=== PATIENT | female | born 1935 | race Caucasian/White ===

== ENCOUNTER 2019-07-16 22:13 | Inpatient (IN) | payer OTHER ==
[~2019-07-16] VITALS: Ht 172.7 cm; Wt 79.8 kg
[2019-07-16 22:13] VITALS: BP 125/75
--- NOTE | 2019-07-16 22:13 | NUR ---
PT EUGENIO ALS. TAKEN TO BED 6
--- NOTE | 2019-07-16 22:43 | NUR ---
83 Y/O FEMALE PRESENTS TO ED, C/O EPIGASTRIC CHEST PAIN, RADIATES TO LEFT SHOULDER 06/03. PT TOOK ASPIRIN 15 MINS PRIOR TO AMBULANCE ARRIVAL. PT RECEIVED 2 ROUNDS OF NITRO ENROUTE; PAIN IS 7/10. PT DENIES ANY DIZZINESS/HEADACHE. PT VSS. PT SEEN BY KAROLINE. WILL CONTINUE TO MONITOR.
--- NOTE | 2019-07-16 22:59 | NUR ---
X-Ray at bedside.
[2019-07-16 23:00] LABS: BASOPHILS # (AUTO) 0.1 K/uL (0.00-0.22); BASOPHILS % (AUTO) 1.3 % (0.0-2.0); EOSINOPHILS # (AUTO) 0.3 K/uL (0-0.4); EOSINOPHILS % (AUTO) 3.2 % (0.0-4.0); HEMATOCRIT 39.2 % (36-48); HEMOGLOBIN 12.9 g/dL (12.0-16.0); LYMPHOCYTES # (AUTO) 3.4 K/uL (2.5-16.5); LYMPHOCYTES % (AUTO) 38.8 % (20.5-51.1); MEAN CORPUSCULAR HEMOGLOBIN 30 pg (27-31); MEAN CORPUSCULAR HGB CONC 33 g/dL (33-37); MEAN CORPUSCULAR VOLUME 92.1 fL (80-94); MONOCYTES # (AUTO) 0.8 K/uL (0.8-1.0); MONOCYTES % (AUTO) 8.9 % (1.7-9.3); NEUTROPHILS # (AUTO) 4.2 K/uL (1.8-7.7); NEUTROPHILS % (AUTO) 47.8 % (42.2-75.2); PLATELET COUNT (AUTO) 245 K/uL (140-450); RED BLOOD CELL COUNT(AUTO) 4.26 MIL/uL (4.20-5.40); RED CELL DISTRIBUTION WIDTH 14.2 % (11.6-13.7); WHITE BLOOD COUNT (AUTO) 8.8 K/uL (4.8-10.8)
[2019-07-16 23:16] LABS: ALBUMIN 3.3 g/dL (3.4-5.0); ANION GAP 14.7 (8-16); ASPARTATE AMINOTRANSFERASE 15 U/L (15-37); CARBON DIOXIDE 24.1 mmol/L (21-32); CHLORIDE 106 mmol/L (98-107); GLUCOSE 97 mg/dL (74-106); LIPASE 224 U/L (73-393); POTASSIUM 3.8 mmol/L (3.5-5.1); SODIUM SERUM 141 mmol/L (136-145); TOTAL BILIRUBIN 0.4 mg/dL (0.0-1.0); UREA NITROGEN, BLOOD 25 mg/dL (7-18)
[2019-07-16 23:23] LABS: CREATINE KINASE MB 0.9 ng/mL (0-3.6)
--- NOTE | 2019-07-17 00:42 | NUR ---
PT LAYING IN BED, RR EVEN AND UNLABORED. REPORTS IMPROVEMENT IN PAIN MGMT, 4/10 AT THIS TIME. PT ABLE TO AMBULATE TO RESTROOM TO URINATE. VSS. ALL NEEDS MET.
[2019-07-17] MEDS ORDERED: ONDANSETRON 4 MG/2 ML VIAL IM/IVP PRN (01:10)
--- NOTE | 2019-07-17 01:18 | NUR ---
Dr. Mane examining patient.
[2019-07-17 01:42] VITALS: BP 163/75
--- NOTE | 2019-07-17 01:42 | NUR ---
REPORT RECEIVED FROM ED NURSE AT BEDSIDE. PT IN STABLE CONDITION. AAOX4. INTRODUCED SELF TO PT. BOARD UPDATED. PT HAS COMPLAINTS OF CHEST PAIN RADIATING TO NECK AREA. WILL MEDICATE. NO SOB. AFEBRILE. PT IS AMBULATORY. IV SITE R WRIST 20G RUNNING NS@60ML/HR PATENT AND INTACT. SKIN WARM, DRY, AND INTACT WITH NO OPEN WOUNDS. BED LOCKED IN LOW POSITION. CALL MIRANDA WITHIN REACH. SAFETY PRECAUTION IN PLACE. ALL NEEDS MET AT THIS TIME.
--- NOTE | 2019-07-17 01:45 | NUR ---
PT ADMITTED TO [facility] RM [id number]. TRANSFERRED PT VIA [place], STABLE CONDITION. REPORT GIVEN TO ERIC SCRUGGS. PT CARE TRANSFERRED TO RECEIVING RN.
[2019-07-17] MEDS ORDERED: amLODIPine 5 MG TAB PO SCH (02:45)
[2019-07-17 02:50] LABS: PROTHROMBIN TIME 9.7 secs (10.8-13.4)
[2019-07-17] MEDS: NACL 0.9% 1,000 ML IV SCH ×2 (02:50→18:14)
[2019-07-17 02:51] LABS: CHOL/HDL RATIO 2.3 (1-4.5); FREE T4 (FREE THYROXINE) 0.99 ng/dL (0.76-1.46); MAGNESIUM 1.6 mg/dL (1.8-2.4); PHOSPHORUS 2.8 mg/dL (2.5-4.9); THYROID STIMULATING HORMONE 5.71 uIU/mL (0.34-3.74)
[2019-07-17] MEDS: LORazepam 2 MG/ML VIAL IM/IVP PRN ×2 (02:56→20:07)
[2019-07-17] MEDS: KETOROLAC 30 MG/ML VIAL IVP PRN ×2 (02:56→20:06)
--- NOTE | 2019-07-17 02:56 | NUR ---
TORADOL GIVEN FOR 5/10 CHEST PAIN RADIATING TO THE NECK. ATIVAN GIVEN FOR ANXIETY. NORVASC GIVEN PO FOR INCREASED BP. PT TOLERATED WELL.
[2019-07-17 04:00] VITALS: BP 136/67
[2019-07-17] MEDS ORDERED: MAG SULF 2000 MG/WATER PREMIX 50 ML IV SCH (04:30)
--- NOTE | 2019-07-17 05:20 | NUR ---
PT SLEEPING COMFORTABLY BUT AROUSABLE. NO S/S OF DISTRESS NOTED. WILL CONTINUE TO MONITOR.
[2019-07-17] MEDS: BLOOD GLUCOSE MONITORING 1 DEV DEV FS SCH (06:06)
--- NOTE | 2019-07-17 06:06 | NUR ---
BS 84. NO INSULIN COVERAGE NEEDED.
[2019-07-17 06:52] LABS: BASOPHILS # (AUTO) 0.1 K/uL (0.00-0.22); BASOPHILS % (AUTO) 1.5 % (0.0-2.0); EOSINOPHILS # (AUTO) 0.3 K/uL (0-0.4); EOSINOPHILS % (AUTO) 4.1 % (0.0-4.0); HEMATOCRIT 40.9 % (36-48); HEMOGLOBIN 13.3 g/dL (12.0-16.0); LYMPHOCYTES # (AUTO) 2.6 K/uL (2.5-16.5); LYMPHOCYTES % (AUTO) 33.8 % (20.5-51.1); MEAN CORPUSCULAR HEMOGLOBIN 30 pg (27-31); MEAN CORPUSCULAR HGB CONC 33 g/dL (33-37); MEAN CORPUSCULAR VOLUME 93.5 fL (80-94); MONOCYTES # (AUTO) 0.9 K/uL (0.8-1.0); MONOCYTES % (AUTO) 11.4 % (1.7-9.3); NEUTROPHILS # (AUTO) 3.8 K/uL (1.8-7.7); NEUTROPHILS % (AUTO) 49.2 % (42.2-75.2); PLATELET COUNT (AUTO) 229 K/uL (140-450); RED BLOOD CELL COUNT(AUTO) 4.37 MIL/uL (4.20-5.40); RED CELL DISTRIBUTION WIDTH 14.3 % (11.6-13.7); WHITE BLOOD COUNT (AUTO) 7.7 K/uL (4.8-10.8)
--- NOTE | 2019-07-17 07:15 | NUR ---
RECEIVED REPORT FROM DAY SHIFT NURSE ERIC FOR CONTINUITY OF CARE. PT IN STABLE CONDITION. RESPIRATIONS EVEN AND UNLABORED, ROOM AIR. IV INTACT AND PATENT. ORIENTED PT TO ROOM. SAFETY MEASURES IN PLACE. BED IN LOW POSITION. CALL LIGHT AT BEDSIDE. WILL CONTINUE TO MONITOR.
[2019-07-17 07:17] LABS: ANION GAP 10.9 (8-16); CHLORIDE 109 mmol/L (98-107); GLUCOSE 91 mg/dL (74-106); POTASSIUM 3.9 mmol/L (3.5-5.1); SODIUM SERUM 144 mmol/L (136-145); UREA NITROGEN, BLOOD 21 mg/dL (7-18)
[2019-07-17 08:00] VITALS: BP 147/67
--- NOTE | 2019-07-17 08:39 | NUR ---
PATIENT HAS BEEN SCREENED AND CATEGORIZED MODERATE NUTRITION RISK. PATIENT WILL BE SEEN WITHIN 3-5 DAYS OF ADMISSION. 07/19/19 07/21/[address]
--- NOTE | 2019-07-17 09:45 | NUR ---
GAVE ORDERED DUE MEDICATIONS AT THIS TIME. PT TOLERATED WELL. BED IN LOW POSITION. CALL LIGHT AT BEDSIDE. WILL CONTINUE TO MONITOR.
[2019-07-17] MEDS: ATORVASTATIN 20 MG TAB PO SCH (09:49)
[2019-07-17] MEDS: CLOPIDOGREL 75 MG TAB PO SCH (09:49)
[2019-07-17] MEDS: ASPIRIN 81 MG TAB.CHEW PO SCH (09:50)
[2019-07-17] MEDS: amLODIPine 5 MG TAB PO SCH (09:50)
[2019-07-17] MEDS ORDERED: DOCUSATE SODIUM 100 MG GELCAP PO PRN (11:00)
--- NOTE | 2019-07-17 11:30 | NUR ---
COLLECTED URINE SAMPLE TO TAKE TO LAB.
[2019-07-17] MEDS: APAP/BUTAL/CAFF 325/50/40 MG 1 TAB PO PRN (11:38)
[2019-07-17 12:00] VITALS: BP 138/64
--- NOTE | 2019-07-17 13:04 | NUR ---
PT TALKING WITH [facility] [phone] STAFF RICARDO AT BEDSIDE. WHERE PT RESIDES. PT IN STABLE CONDITION. BED IN LOW POSITION. CALL LIGHT AT BEDSIDE. WILL CONTINUE TO MONITOR.
[2019-07-17 14:25] LABS: APPEARANCE,URINE CLEAR (CLEAR); BILIRUBIN,URINE NEGATIVE (NEGATIVE); BLOOD, URINE NEGATIVE (NEGATIVE); COLOR,URINE YELLOW (YELLOW); LEUKOCYTE ESTERASE ,URINE NEGATIVE (NEGATIVE); NITRITE, URINE NEGATIVE (NEGATIVE); PH,URINE 6.5 (5.0-9.0); UGLUCOSE NEGATIVE (NEGATIVE)
--- NOTE | 2019-07-17 15:10 | NUR ---
PT REMOVED HEART MONITOR INFORMING THE NURSE SHE IS GOING HOME.
--- NOTE | 2019-07-17 15:57 | NUR ---
PLACED HEART MONITOR BACK ON PT. EXPLAINED TO PT THE IMPORTANCE OF CARDIAC MONITORING, PT VERBALIZED UNDERSTANDING.
--- NOTE | 2019-07-17 17:57 | NUR ---
PT WATCHING TV IN STABLE CONDITION. BED IN LOW POSITION. CALL LIGHT AT BEDSIDE. WILL CONTINUE TO MONITOR.
[2019-07-17 18:34] VITALS: BP 148/65
--- NOTE | 2019-07-17 19:15 | NUR ---
GAVE REPORT TO CUSTOMER SERVICE SECURITY OFFICER NURSE ERIC FOR CONTINUITY OF CARE. PT IN STABLE CONDITION.
--- NOTE | 2019-07-17 19:16 | NUR ---
REPORT RECEIVED FROM AM NURSE AT BEDSIDE. PT IN STABLE CONDITION. AAOX4. INTRODUCED SELF TO PT. BOARD UPDATED. NO COMPLAINTS OF PAIN. NO SOB. AFEBRILE. PT IS AMBULATORY. IV SITE R WRIST 20G RUNNING NS@60ML/HR PATENT AND INTACT. SKIN WARM, DRY, AND INTACT WITH NO OPEN WOUNDS. BED LOCKED IN LOW POSITION. CALL MIRANDA WITHIN REACH. SAFETY PRECAUTION IN PLACE. ALL NEEDS MET AT THIS TIME.
[2019-07-17 20:00] VITALS: BP 163/59
[2019-07-17] MEDS: DONEPEZIL 10 MG TAB PO SCH (20:06)
--- NOTE | 2019-07-17 20:06 | NUR ---
ARICEPT GIVEN PO. ATIVAN GIVEN FOR ANXIETY. TORADOL GIVEN FOR 5/10 CHEST PAIN. PT TOLERATED WELL.
--- NOTE | 2019-07-17 21:45 | NUR ---
PT IN BED SLEEPING COMFORTABLY BUT AROUSABLE. NO S/S OF DISTRESS NOTED. WILL CONTINUE TO MONITOR.
--- NOTE | 2019-07-17 23:35 | NUR ---
PT SLEEPING COMFORTABLY BUT AROUSABLE. NO S/S OF DISTRESS NOTED. VS STABLE. WILL CONTINUE TO MONITOR.
[2019-07-18] VITALS: BP 147/79
--- NOTE | 2019-07-18 02:15 | NUR ---
PT SLEEPING COMFORTABLY BUT AROUSABLE. NO S/S OF DISTRESS NOTED. NO COMPLAINTS OF PAIN. NO SOB. AFEBRILE. WILL CONTINUE TO MONITOR.
[2019-07-18 04:00] VITALS: BP 138/81
--- NOTE | 2019-07-18 04:25 | NUR ---
PT SLEEPING COMFORTABLY BUT AROUSABLE. NO S/S OF DISTRESS NOTED. NO COMPLAINTS OF PAIN. NO SOB. AFEBRILE. WILL CONTINUE TO MONITOR.
[2019-07-18] MEDS: BLOOD GLUCOSE MONITORING 1 DEV DEV FS SCH (06:06)
--- NOTE | 2019-07-18 06:06 | NUR ---
BS 75. NO INSULIN COVERAGE NEEDED.
[2019-07-18 06:49] LABS: BASOPHILS # (AUTO) 0.1 K/uL (0.00-0.22); BASOPHILS % (AUTO) 1.8 % (0.0-2.0); EOSINOPHILS # (AUTO) 0.3 K/uL (0-0.4); EOSINOPHILS % (AUTO) 4.6 % (0.0-4.0); HEMATOCRIT 39.9 % (36-48); LYMPHOCYTES # (AUTO) 2.4 K/uL (2.5-16.5); MEAN CORPUSCULAR HEMOGLOBIN 31 pg (27-31); MEAN CORPUSCULAR HGB CONC 33 g/dL (33-37); MONOCYTES # (AUTO) 0.7 K/uL (0.8-1.0); MONOCYTES % (AUTO) 10.6 % (1.7-9.3); NEUTROPHILS # (AUTO) 3.1 K/uL (1.8-7.7); PLATELET COUNT (AUTO) 214 K/uL (140-450); RED BLOOD CELL COUNT(AUTO) 4.24 MIL/uL (4.20-5.40); RED CELL DISTRIBUTION WIDTH 14.2 % (11.6-13.7); WHITE BLOOD COUNT (AUTO) 6.6 K/uL (4.8-10.8)
[2019-07-18 07:04] LABS: MAGNESIUM 1.8 mg/dL (1.8-2.4); PHOSPHORUS 3.2 mg/dL (2.5-4.9)
[2019-07-18 07:12] LABS: ANION GAP 12.3 (8-16); CARBON DIOXIDE 25.9 mmol/L (21-32); CHLORIDE 109 mmol/L (98-107); CREATININE 0.9 mg/dL (0.6-1.3); GLUCOSE 88 mg/dL (74-106); POTASSIUM 4.2 mmol/L (3.5-5.1); SODIUM SERUM 143 mmol/L (136-145); UREA NITROGEN, BLOOD 19 mg/dL (7-18)
--- NOTE | 2019-07-18 07:50 | NUR ---
REPORT RECEIVED FROM PLASTIC TOP ASSEMBLER NURSE AT BEDSIDE. PT IN STABLE CONDITION. AAOX4. INTRODUCED SELF TO PT. BOARD UPDATED. NO COMPLAINTS OF PAIN. NO SOB. AFEBRILE. PT IS AMBULATORY. IV SITE R WRIST 20G RUNNING NS@60ML/HR PATENT AND INTACT. SKIN WARM, DRY, AND INTACT WITH NO OPEN WOUNDS. EXPLAINED POC TO PT AND PT VERBALIZED UNDERSTANDING. BED LOCKED IN LOW POSITION. CALL MIRANDA WITHIN REACH. SAFETY PRECAUTION IN PLACE. ALL NEEDS MET AT THIS TIME. WILL ROUND FREQUENTLY ON PT.
[2019-07-18 08:00] VITALS: BP 144/72
[2019-07-18] MEDS: ATORVASTATIN 20 MG TAB PO SCH (08:26)
[2019-07-18] MEDS: PANTOPRAZOLE 40 MG TABEC PO SCH (08:26)
[2019-07-18] MEDS: CLOPIDOGREL 75 MG TAB PO SCH (08:27)
[2019-07-18] MEDS: amLODIPine 5 MG TAB PO SCH (08:27)
[2019-07-18] MEDS: ASPIRIN 81 MG TAB.CHEW PO SCH (08:27)
--- NOTE | 2019-07-18 08:37 | NUR ---
ADMINISTERED MORNING MEDS TO PT. PT TOLERATED WELL. WILL CONTINUE TO ROUND FREQUENTLY ON PT. BED IN LOW POSITION, CALL LIGHT WITHIN REACH.
[2019-07-18] MEDS: NACL 0.9% 1,000 ML IV SCH (10:49)
[2019-07-18] MEDS ORDERED: KETOROLAC 15 MG/ML VIAL IVP PRN (11:30)
--- NOTE | 2019-07-18 11:34 | NUR ---
PT SLEEPING IN BED. ALL NEEDS MET. WILL CONTINUE TO ROUND FREQUENTLY ON PT. BED IN LOW POSITION, CALL LIGHT WITHIN REACH.
--- NOTE | 2019-07-18 13:23 | NUR ---
PT SLEEPING. ALL NEEDS MET. NO SIGNS OF PAIN OR DISTRESS NOTED. WILL CONTINUE TO ROUND FREQUENTLY ON PT. BED IN LOW POSITION, CALL LIGHT WITHIN REACH.
--- NOTE | 2019-07-18 15:03 | NUR ---
PT RESTING. ALL NEEDS MET. WILL CONTINUE TO ROUND FREQUENTLY ON PT.
[2019-07-18 16:00] VITALS: BP 144/68
--- NOTE | 2019-07-18 17:28 | NUR ---
PT RESTING IN BED. ALL NEEDS MET. WILL CONTINUE TO ROUND FREQUENTLY ON PT.
--- NOTE | 2019-07-18 19:39 | NUR ---
RECIEVED PT AAOX4 , NID ,IV SITE INTACT AND PATENT , WITH C/O OF VERY LIGHT CHEST PAIN , ECG RESULT -SR UPON ADMISSION . PAIN SCALE 1/10 SHE SAID , O2 SAT. WNL , PLAN OF CARE DISCUSSED AND VERBALIZE UNDERSTANDING , CALL LIGHT WITHIN REACH . ON SAFETY /FALL PRECAUTION PROTOCOL - REMINDS THE USE OF CALL LIGHT . REMINDS TO CALL FOR ASSITANCE IF SHE NEEDED.WILL CONT. TO MONITOR .
--- NOTE | 2019-07-18 19:39 | NUR ---
ENDORSED PT TO LADLE MECHANIC FOR CONTINUITY OF CARE. PT IN STABLE CONDITION AT THIS TIME.
[2019-07-18] MEDS: DONEPEZIL 10 MG TAB PO SCH (20:28)
--- NOTE | 2019-07-18 21:45 | NUR ---
MADE ROUNDS TO VERIFY IF SHE STILL WANTS SLEEPING PILL - BUT PT. SLEEPING AT THIS TIME.
[2019-07-18] MEDS: LORazepam 2 MG/ML VIAL IM/IVP PRN (23:17)
[2019-07-19] VITALS: BP 143/79
--- NOTE | 2019-07-19 | NUR ---
MADE ROUNDS , NO COMPLAIN MADE AT THIS TIME.WILL CONT. TO MONITOR.
--- NOTE | 2019-07-19 02:00 | NUR ---
SLEEPING , CALL LIGHT WITHIN REACH.
[2019-07-19] MEDS: NACL 0.9% 1,000 ML IV SCH (03:09)
--- NOTE | 2019-07-19 04:00 | NUR ---
MADE ROUNDS , NO COMPLAIN MADE .
[2019-07-19] MEDS: BLOOD GLUCOSE MONITORING 1 DEV DEV FS SCH (05:51)
--- NOTE | 2019-07-19 07:25 | NUR ---
ENDORSED TO AM SHIFT FOR CONT. OF CARE WITH STABLE CONDITION,.
--- NOTE | 2019-07-19 07:30 | NUR ---
RECEIVED PT FROM GROUP FITNESS DEPARTMENT HEAD NURSE, PT IS AWAKE AND LYING ON THE BED WITH SIDE RAILS UP AND CALL LIGHT WITHIN REACH, PERIPHERAL LINE ON THE RIGHT WRIST G. 20 WITH NS INFUSING AT 60ML/HR, PT DENIES PAIN, AOX4, ON ROOM AIR, AND NO SIGN OF DISTRESS NOTED. WILL CONTINUE TO MONITOR PT
[2019-07-19 08:00] VITALS: BP 141/62
[2019-07-19 08:38] LABS: BASOPHILS # (AUTO) 0.1 K/uL (0.00-0.22); BASOPHILS % (AUTO) 1.5 % (0.0-2.0); EOSINOPHILS # (AUTO) 0.3 K/uL (0-0.4); EOSINOPHILS % (AUTO) 4.3 % (0.0-4.0); HEMOGLOBIN 13.7 g/dL (12.0-16.0); LYMPHOCYTES # (AUTO) 2.4 K/uL (2.5-16.5); LYMPHOCYTES % (AUTO) 34.7 % (20.5-51.1); MEAN CORPUSCULAR HEMOGLOBIN 31 pg (27-31); MEAN CORPUSCULAR HGB CONC 33 g/dL (33-37); MEAN CORPUSCULAR VOLUME 94.2 fL (80-94); MONOCYTES # (AUTO) 0.7 K/uL (0.8-1.0); MONOCYTES % (AUTO) 10.5 % (1.7-9.3); NEUTROPHILS # (AUTO) 3.5 K/uL (1.8-7.7); PLATELET COUNT (AUTO) 232 K/uL (140-450); RED BLOOD CELL COUNT(AUTO) 4.45 MIL/uL (4.20-5.40); RED CELL DISTRIBUTION WIDTH 14.4 % (11.6-13.7)
[2019-07-19] MEDS: ATORVASTATIN 20 MG TAB PO SCH (09:03)
--- NOTE | 2019-07-19 09:03 | NUR ---
PT IS AWAKE AND ORAL MEDICATIONS WERE GIVEN, PARAMETER CHECKED, TOLERATED AND NO SIGN OF DISTRESS NOTED. WILL MONITOR PT.
[2019-07-19] MEDS: CLOPIDOGREL 75 MG TAB PO SCH (09:04)
[2019-07-19] MEDS: ASPIRIN 81 MG TAB.CHEW PO SCH (09:04)
[2019-07-19] MEDS: amLODIPine 5 MG TAB PO SCH (09:04)
[2019-07-19] MEDS: PANTOPRAZOLE 40 MG TABEC PO SCH (09:04)
[2019-07-19 11:52] LABS: ANION GAP 15.4 (8-16); CARBON DIOXIDE 25.8 mmol/L (21-32); CHLORIDE 109 mmol/L (98-107); GLUCOSE 86 mg/dL (74-106); POTASSIUM 4.2 mmol/L (3.5-5.1); SODIUM SERUM 146 mmol/L (136-145); UREA NITROGEN, BLOOD 17 mg/dL (7-18)
[2019-07-19] MEDS ORDERED: ATOR20TA40 PO (11:54)
[2019-07-19] MEDS ORDERED: PANT40EC28 PO (11:54)
[2019-07-19] MEDS ORDERED: ASPI81CT95 PO (11:54)
[2019-07-19] MEDS ORDERED: AMLO5TAB6 PO (11:54)
[2019-07-19] MEDS ORDERED: CLOP75TA55 PO (11:54)
[2019-07-19] MEDS ORDERED: DONE10TA10 PO (11:54)
[2019-07-19 12:30] LABS: MAGNESIUM 1.9 mg/dL (1.8-2.4)
--- NOTE | 2019-07-19 13:17 | NUR ---
ULTRASOUND OF THE ABDOMEN LIMITED IS BEING DONE TO PT NOW
[2019-07-19] MEDS: APAP/BUTAL/CAFF 325/50/40 MG 1 TAB PO PRN (14:49)
--- NOTE | 2019-07-19 14:49 | NUR ---
PT C/O PAIN RATE OF 8/10 FOR HEADACHE AND MEDICATED WITH FIORECET. WILL RE-ASSESS PT.
[2019-07-19] MEDS ORDERED: MEMA5TAB PO (14:54)
[2019-07-19] MEDS ORDERED: LEVO0.0211 PO (14:54)
[2019-07-19] MEDS ORDERED: ESCI5TAB PO (14:54)
--- NOTE | 2019-07-19 16:55 | NUR ---
DISCHARGED PT TO [facility] WITH CASA, PERSONNEL FROM THE BOARD AND CARE, VIA WHEELCHAIR, DISCHARGE INSTRUCTIONS AND MEDICATION PRESCRIPTIONS WERE GIVEN TO PT AND CASA, AND BOTH VERBALIZED UNDERSTANDING,PT IS STABLE AT THIS TIME. DR. BRIGHT SPOKE TO CASA, FACILITY PERSONNEL AND WAS REMINDED TO HAVE PT SCHEDULE AN APPOINTMENT WITH PCP AND CASA VERBALIZED UNDERSTANDING.
[2019-07-19] MEDS ORDERED: DONEPEZIL 10 MG TAB PO SCH (21:00)
[2019-07-20] MEDS ORDERED: amLODIPine 5 MG TAB PO SCH (09:00)
[2019-07-20] MEDS ORDERED: PANTOPRAZOLE 40 MG TABEC PO SCH (09:00)
[2019-07-20] MEDS ORDERED: CLOPIDOGREL 75 MG TAB PO SCH (09:00)
[2019-07-20] MEDS ORDERED: ATORVASTATIN 20 MG TAB PO SCH (09:00)
[2019-07-20] MEDS ORDERED: ASPIRIN 81 MG TAB.CHEW PO SCH (09:00)
== END 2019-07-19 16:55 | DRG 206 ==
LOC: MED 22:13 → MTU 07-17 01:12
PROVIDERS: ADMIT General Practice; ATTEND General Practice
DX: M94.0 Chondrocostal junction syndrome [Tietze] (principal); E87.0 Hyperosmolality and hypernatremia; F32.9 Major depressive disorder, single episode, unspecified; I25.10 Atherosclerotic heart disease of native coronary artery without angina pectoris; E11.9 Type 2 diabetes mellitus without complications; I10 Essential (primary) hypertension; F03.90 Unspecified dementia, unspecified severity, without behavioral disturbance, psychotic disturbance, mood disturbance, and anxiety; E03.9 Hypothyroidism, unspecified; I48.0 Paroxysmal atrial fibrillation; E87.8 Other disorders of electrolyte and fluid balance, not elsewhere classified; K21.9 Gastro-esophageal reflux disease without esophagitis; Z88.8 Allergy status to other drugs, medicaments and biological substances; Z86.73 Personal history of transient ischemic attack (TIA), and cerebral infarction without residual deficits
CPT/HCPCS: 36415; 71045; 76705; 80048; 80053; 81003; 82550; 82553; 82948; 83036; 83605; 83690; 83735; 83880; 84100; 84439; 84443; 84484; 85025; 85610; 85730; 87081; 93005; 97110; 97116; 97161-GP; 97530; 99285; J1885; J2060; J3475; J7030; Q0092